=== PATIENT | female | born 1975 | race Two or more races ===

== ENCOUNTER → 2020-05-05 | Outpatient (CLI) | payer OTHER | END | disposition home or self-care (01) | LOC: RAD 08:54 | PROVIDERS: ATTEND Internal Medicine | DX: K80.20 Calculus of gallbladder without cholecystitis without obstruction (principal); N28.1 Cyst of kidney, acquired; R74.8 Abnormal levels of other serum enzymes; K21.9 Gastro-esophageal reflux disease without esophagitis | CPT/HCPCS: 76700 ==

== ENCOUNTER 2020-07-12 05:29 | Day surgery (SDC) | payer OTHER ==
[2020-07-09 16:35] LABS: BASOPHILS % (AUTO) 3 % (0-1); EOSINOPHILS % (AUTO) 5 % (1-7); LYMPHOCYTES % (AUTO) 25 % (22-44); MEAN CORPUSCULAR HEMOGLOBIN 24.2 pg (27.0-34.8); MEAN CORPUSCULAR HGB CONC 31.8 g/dL (32.4-35.8); MEAN PLATELET VOLUME 9.3 fL (7.4-10.4); MONOCYTES % (AUTO) 5 % (2-9); NEUTROPHILS % (AUTO) 63 % (42-75); PLATELET COUNT 261 x10^3/uL (130-400); RED BLOOD COUNT 4.35 x10^6/uL (3.82-5.3)
[2020-07-09 16:36] LABS: MD NO
[2020-07-09 16:41] LABS: PROTHROMBIN TIME 10.6 Seconds (9.6-11.5)
[2020-07-09 16:45] LABS: ALBUMIN 3.2 g/dL (3.4-5.0); ANION GAP 5 mmol/L (5-15); CALCIUM 8.9 mg/dL (8.5-10.1); CHLORIDE 109 mmol/L (98-107)
[2020-07-09 16:50] LABS: ALANINE AMINOTRANSFERASE 34 U/L (12-78); ALKALINE PHOSPHATASE 234 U/L (45-117); BILIRUBIN,TOTAL 0.4 mg/dL (0.2-1.0); CREATININE 0.59 mg/dL (0.55-1.02); TOTAL PROTEIN 8.1 g/dL (6.4-8.2)
[~2020-07-12] VITALS: Ht 147.3 cm; Wt 47.8 kg
[~2020-07-12 05:29] MED LIST: ETHY1TAB PO; FERR324T5 PO; LEVO88TA4 PO; OMEP40CA42 PO
[2020-07-12 06:10] VITALS: BP 105/72
[2020-07-12] MEDS ORDERED: LACTATED RINGERS 1,000 ML IV SCH (06:30)
[2020-07-12] MEDS ORDERED: CHLORHEXIDINE 15 ML UDC MM ONE (06:30)
[2020-07-12] MEDS ORDERED: BUPIVACAINE/PF 0.5% ONE (06:52)
[2020-07-12] MEDS ORDERED: EPINEPHRINE 1 MG/ML, 1ML ONE (06:52)
[2020-07-12] MEDS ORDERED: FENTANYL PF 100 MCG/2ML ONE ×2 (07:20→08:29)
[2020-07-12] MEDS ORDERED: MIDAZOLAM 1 MG/ML, 2ML ONE (07:20)
[2020-07-12] MEDS ORDERED: DEXAMETHASONE 4 MG/ML, 5ML ONE (07:51)
[2020-07-12] MEDS ORDERED: ONDANSETRON 2MG/ML, 2ML ONE (07:51)
[2020-07-12] MEDS ORDERED: ROCURONIUM 10MG/ML,5ML ONE (07:52)
[2020-07-12] MEDS ORDERED: LIDOCAINE-MPF 2% ,5ML ONE (07:52)
[2020-07-12] MEDS ORDERED: PROPOFOL 10 MG/ML, 20ML ONE (07:52)
[2020-07-12] MEDS ORDERED: CEFAZOLIN 1,000 MG ONE ×2 (07:52)
[2020-07-12] MEDS ORDERED: PROMETHAZINE 25 MG/ML, 1ML IVPush PRN (08:00)
[2020-07-12] MEDS ORDERED: ONDANSETRON 2MG/ML, 2ML IVPush PRN (08:00)
[2020-07-12] MEDS ORDERED: ACETAMINOPHEN 325 MG TABLET PO PRN (08:00)
[2020-07-12] MEDS ORDERED: DIPHENHYDRAMINE 50 MG/ML, 1ML IVPush PRN (08:00)
[2020-07-12] MEDS ORDERED: DIAZEPAM 5 MG/ML, 2ML IVPush PRN (08:00)
[2020-07-12] MEDS ORDERED: HYDROmorphone 1 MG/ML, 1ML INJ IVPush PRN (08:00)
[2020-07-12] MEDS ORDERED: MEPERIDINE/PF 25MG/0.5ML IVPush PRN (08:00)
[2020-07-12] MEDS ORDERED: OXYcodone 5 MG/5 ML ORAL.SOL UDC PO PRN (08:00)
[2020-07-12] MEDS ORDERED: OXYcodone 5 MG/5 ML ORAL.SOL UDC ONE (08:29)
[2020-07-12] MEDS ORDERED: ACETAMINOPHEN 650 MG/20.3 ML UDC ONE (08:29)
[2020-07-12] MEDS ORDERED: HYDR-1067 PO (08:41)
[2020-07-12] MEDS: FENTANYL PF 100 MCG/2ML IV PRN ×2 (08:44→08:50)
== END 2020-07-12 11:55 | disposition home or self-care (01) ==
LOC: OUT 05:29
PROVIDERS: ATTEND Surgery
DX: K80.10 Calculus of gallbladder with chronic cholecystitis without obstruction (principal); E11.9 Type 2 diabetes mellitus without complications; K21.9 Gastro-esophageal reflux disease without esophagitis; E03.9 Hypothyroidism, unspecified; F17.210 Nicotine dependence, cigarettes, uncomplicated; Z98.890 Other specified postprocedural states; Z79.899 Other long term (current) drug therapy; Z20.828 Contact with and (suspected) exposure to other viral communicable diseases; Z72.89 Other problems related to lifestyle
CPT/HCPCS: 36415; 47562; 80053; 84703; 85025; 85610; 88304; 93005; J0171; J0690; J1100; J2250; J2405; J2704; J3010; J7120; U0003